=== PATIENT | male | born 1950 | race Caucasian/White ===

== ENCOUNTER → 2018-01-29 | Outpatient (CLI) | payer OTHER ==
--- NOTE | 2018-01-29 16:04 | RADIOLOGY REPORT (SQ) ---
EXAM DESCRIPTION: U/S NON-OB PELVIS LTD W/O DOP COMPLETED DATE/TIME: 01/29/2018 9:47 am REASON FOR STUDY: UNIL INGUINAL HERNIA, W/O OBST OR GANGR, NOT SPCF RECUR K40.90 UNIL INGUINAL H ERNIA, W/O OBST OR GANGR, NOT SPCF . History of right inguinal hernia repair x2. Pain and palpable area at the right groin since the most recent surgery in July. COMPARISON: CT abdomen and pelvis 07/21/2012. TECHNIQUE: Dynamic and static grayscale images acquired of the localized site of clinical concern an d recorded on PACS. Additional selected color Doppler images recorded. SITE OF CONCERN: Right inguinal region. LIMITATIONS: None. FINDINGS: Ultrasound scanning of the patient's area of the concern at the right inguinal region was performed. There is a questionable small area of discontinuity in the fascia. A small lymph node at the right inguinal region is measuring 1.2 cm in length. Calcifications are noted at the right femor al artery. Otherwise, no acute findings were noted by ultrasound. IMPRESSION: Questionable small area of discontinuity at the fascia at the right inguinal region. TECHNICAL DOCUMENTATION: JOB ID: [id number] [employer]- All Rights Reserved Reading location - IP/workstation name: [email or web address]
== END ==
LOC: RAD 09:04
PROVIDERS: ATTEND Physician Assistant Surgical
DX: K40.90 Unilateral inguinal hernia, without obstruction or gangrene, not specified as recurrent (principal)
CPT/HCPCS: 76857